=== PATIENT | female | born 1945 | race Caucasian/White ===

== ENCOUNTER 2018-03-24 12:55 | Emergency (ER) | payer OTHER ==
[~2018-03-24] VITALS: Ht 162.6 cm; Wt 81.7 kg
[~2018-03-24 12:55] MED LIST: ACETAMINOPHEN325 M1 PO; ACTOS 30 MG TAB30 MG PO; BENAZEPRIL HCL20 MG PO; COLACE 100 MG100 MG PO; IBUPROFEN 200200 M1 PO; LORTAB 5 MG/5001 TA1 PO; NAUSEA MEDICATION; PAXIL10 MG PO; RESTORIL30 MG PO; TOPROL XL50 MG PO; VANCOMYCIN PO
[2018-03-24 13:15] LABS: ABSOLUTE BASOPHILS 0.1 thou/uL (0.0-0.2); ABSOLUTE EOSINOPHILS 0.1 thou/uL (0.0-0.7); ABSOLUTE LYMPHOCYTES 2.3 thou/uL (0.8-5.3); ABSOLUTE MONOCYTES 1.4 thou/uL (0.0-1.2); ABSOLUTE NEUTROPHILS 11.1 thou/uL (1.6-8.1); BASOPHILS 0.8 %; EOSINOPHILS 0.7 %; HEMOGLOBIN 10.9 gm/dL (12.0-15.0); LYMPHOCYTES 15.6 %; MCH 29.5 pg (26.0-34.0); MCHC 31.1 g/dL (28.0-37.0); MCV 94.6 fL (80.0-100.0); MPV 7.1 fl. (7.2-11.1); NUCLEATED RBCS 0 /100WBC; PLATELET COUNT* 435 thou/uL (150-400); POLYS 73.9 %; RDW-CV 14.4 % (10.5-14.5)
[2018-03-24 13:22] LABS: POC CA IONIZED 4.5 mg/dL (4.5-5.3); POC CREATININE 3.7 mg/dL (0.6-1.3); POC HEMOGLOBIN 11.9 g/dL (12.0-17.0); POC POTASSIUM 5.8 mmol/L (3.5-4.9)
[2018-03-24 13:22] LABS: ANION GAP 12 mmol/L (7-16); BUN 46 mg/dL (7-18); CALCIUM 8.4 mg/dL (8.5-10.1); CHLORIDE 103 mmol/L (98-107); CO2 21 mmol/L (21-32); CREATININE 3.6 mg/dL (0.6-1.3); GLUCOSE 62 mg/dL (70-99); POTASSIUM 5.8 mmol/L (3.5-5.1); SODIUM 136 mmol/L (136-145)
[2018-03-24] MEDS ORDERED: DURAGESIC1 EAC4 TD (13:26)
[2018-03-24] MEDS ORDERED: AMIODARONE HCL100 MG PO (13:26)
[2018-03-24] MEDS ORDERED: SENNA8.6 MG PO (13:27)
[2018-03-24] MEDS ORDERED: DESYREL150 MG PO (13:27)
[2018-03-24] MEDS ORDERED: PAXIL10 MG PO (13:27)
[2018-03-24] MEDS ORDERED: ONDANSETRON HCL4 M2 (13:28)
[2018-03-24] MEDS ORDERED: TYLENOL325 M1 PO (13:28)
[2018-03-24] MEDS ORDERED: ROBITUSSIN100 MG/53 PO (13:28)
[2018-03-24 13:29] LABS: ALBUMIN 1.4 g/dL (3.4-5.0); ALKALINE PHOSPHATASE 140 U/L (46-116); SGOT 26 U/L (15-37); SGPT 14 U/L (30-65); TOTAL BILIRUBIN 0.2 mg/dL (<0.1-1.0); TOTAL PROTEIN 6.4 g/dL (6.4-8.2); TROPONIN-I LEVEL <0.06 ng/mL (<0.06)
[2018-03-24] MEDS ORDERED: RESTORIL15 MG PO (13:29)
[2018-03-24] MEDS ORDERED: OXYCONTIN10 M1 PO (13:29)
[2018-03-24 13:38] LABS: APTT 70.2 Seconds (25.0-31.3); PROTIME 104.3 Seconds (9.20-11.50)
[2018-03-24 13:39] LABS: INR 10.4
[2018-03-24 14:18] LABS: ABSOLUTE BASOPHILS 0.1 thou/uL (0.0-0.2); ABSOLUTE EOSINOPHILS 0.1 thou/uL (0.0-0.7); ABSOLUTE LYMPHOCYTES 1.6 thou/uL (0.8-5.3); ABSOLUTE MONOCYTES 1.2 thou/uL (0.0-1.2); ABSOLUTE NEUTROPHILS 9.7 thou/uL (1.6-8.1); BASOPHILS 0.6 %; EOSINOPHILS 0.6 %; HEMATOCRIT 31.9 % (37.0-47.0); LYMPHOCYTES 12.4 %; MCH 29.9 pg (26.0-34.0); MCHC 31.3 g/dL (28.0-37.0); MCV 95.6 fL (80.0-100.0); MONOCYTES 9.7 %; MPV 6.9 fl. (7.2-11.1); NUCLEATED RBCS 0 /100WBC; POLYS 76.7 %; RBC 3.34 mil/uL (4.20-5.00); RDW-CV 14.8 % (10.5-14.5); WBC 12.7 thou/uL (4.0-11.0)
[2018-03-24 14:20] LABS: PLATELET COUNT* 357 thou/uL (150-400)
[2018-03-24 14:26] LABS: CALCIUM 7.9 mg/dL (8.5-10.1); CREATININE 3.5 mg/dL (0.6-1.3); POTASSIUM 5.5 mmol/L (3.5-5.1)
[2018-03-24 14:29] LABS: APTT 74.6 Seconds (25.0-31.3); PROTIME 112.4 Seconds (9.20-11.50)
[2018-03-24 14:30] LABS: ALBUMIN 1.2 g/dL (3.4-5.0); TOTAL BILIRUBIN 0.2 mg/dL (<0.1-1.0); TOTAL PROTEIN 5.5 g/dL (6.4-8.2)
[2018-03-24 14:31] LABS: INR 11.2
[2018-03-24 16:21] VITALS: BP 92/39
--- NOTE | 2018-03-25 12:32 | EKG ---
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: Chi WEISS : 1945 Requested By: Javad Love Order Number: [id number] MD: Tony De Leon Measurements Intervals [place] Rate: 96 P: 93 MN: 150 QRS: 55 QRSD: 112 T: -26 QT: 408 QTc: 516 Interpretive Statements Sinus rhythm Borderline intraventricular conduction delay Low voltage, precordial leads Borderline T wave abnormalities Prolonged QT interval No previous ECG available for comparison Electronically Signed On 03-25-2018 12:32:25 [employer]AFF TRA[employer] by Tony De Leon [email or web address] <ELECTRONICALLY SIGNED> By: Tony De Leon MD, FACC 03/25/18 1232 1322 1322 Tony De Leon MD, [facility] /EPI
== END 2018-03-24 16:22 | disposition short-term general hospital (02) ==
LOC: M.ERS 12:55
PROVIDERS: Family Medicine
DX: I95.9 Hypotension, unspecified (principal); R41.82 Altered mental status, unspecified; C34.90 Malignant neoplasm of unspecified part of unspecified bronchus or lung; R79.1 Abnormal coagulation profile; E11.9 Type 2 diabetes mellitus without complications; E78.5 Hyperlipidemia, unspecified; J44.9 Chronic obstructive pulmonary disease, unspecified